=== PATIENT | female | born 1960 | race Caucasian/White ===

== ENCOUNTER 2018-11-20 11:15 | Emergency (ER) | payer OTHER, MEDICARE ==
[~2018-11-20] VITALS: Ht 165.1 cm; Wt 77.3 kg
[2018-11-20 11:24] VITALS: BP 163/74
[2018-11-20] MEDS ORDERED: ketorolac trometh inj. 60 MG/2 ML VIAL IM ONE (12:15)
[2018-11-20] MEDS ORDERED: ORPH100T2 PO (12:16)
== END 2018-11-20 13:16 | disposition home or self-care (01) ==
LOC: ER 11:15
DX: S29.012A Strain of muscle and tendon of back wall of thorax, initial encounter (principal); S40.022A Contusion of left upper arm, initial encounter; I10 Essential (primary) hypertension; E03.9 Hypothyroidism, unspecified; G89.29 Other chronic pain; F41.9 Anxiety disorder, unspecified; F32.9 Major depressive disorder, single episode, unspecified; F10.99 Alcohol use, unspecified with unspecified alcohol-induced disorder; Z90.49 Acquired absence of other specified parts of digestive tract; Z90.710 Acquired absence of both cervix and uterus; Z98.890 Other specified postprocedural states; Z87.891 Personal history of nicotine dependence; Z88.0 Allergy status to penicillin; Z88.1 Allergy status to other antibiotic agents; Z88.2 Allergy status to sulfonamides; Z88.7 Allergy status to serum and vaccine; Z88.8 Allergy status to other drugs, medicaments and biological substances; Z79.899 Other long term (current) drug therapy; V49.88XA Car occupant (driver) (passenger) injured in other specified transport accidents, initial encounter; Y93.89 Activity, other specified; Y92.488 Other paved roadways as the place of occurrence of the external cause; Y99.8 Other external cause status; Y90.9 Presence of alcohol in blood, level not specified
CPT/HCPCS: 96372; 99283; J1885